=== PATIENT | male | born 1980 | race Caucasian/White ===

== ENCOUNTER 2017-11-19 15:26 | Emergency (ER) | payer MEDICAID ==
[~2017-11-19] VITALS: Ht 172.7 cm; Wt 104.0 kg
[~2017-11-19 15:26] MED LIST: CLIN-80 PO; NO HOME MEDS; PANT20TA3 PO; SUCR1ORA2 PO
[2017-11-19 16:00] LABS: BASOPHILS % (AUTO) 0.5 % (0-1); EOSINOPHILS # (AUTO) 0.2 X10'3 (0-0.9); EOSINOPHILS % (AUTO) 4.3 % (0-6); HEMATOCRIT 44.8 % (42.0-52.0); HEMOGLOBIN 15.7 g/dl (14.0-17.9); LYMPHOCYTES # (AUTO) 1.6 X10'3 (1.1-4.8); LYMPHOCYTES % (AUTO) 29.1 % (21-51); MEAN CORPUSCULAR HEMOGLOBIN 32.2 PG (27.0-31.0); MEAN CORPUSCULAR HGB CONC 34.9 % (33.0-36.5); MEAN CORPUSCULAR VOLUME 92.3 FL (78-98); MEAN PLATELET VOLUME 7.7 FL (7.4-10.4); MONOCYTES # (AUTO) 0.5 X10'3 (0-0.9); MONOCYTES % (AUTO) 8.7 % (2-12); NEUTROPHILS # (AUTO) 3.2 X10'3 (1.8-7.7); NEUTROPHILS % (AUTO) 57.4 % (42-75); PLATELET COUNT 219 X10'3 (140-440); RED BLOOD COUNT 4.86 X10'6 (4.70-6.10); RED CELL DISTRIBUTION WIDTH 13.1 % (11.5-14.5); WHITE BLOOD COUNT 5.7 X10'3 (4.5-11.0)
[2017-11-19 16:11] LABS: CLARITY,URINE SLIGHTLY CLOUDY (Clear); COLOR,URINE YELLOW (Yellow); GLUCOSE, URINE NEGATIVE (Neg); KETONES,URINE NEGATIVE (Neg); LEUKOCYTE ESTERASE ,URINE NEGATIVE (Neg); NITRITES, URINE NEGATIVE (Neg); OCCULT BLOOD,URINE NEGATIVE (Neg); PH,URINE 8.5 (4.8-8.0); PROTEIN,URINE NEGATIVE (Neg); UROBILINOGEN,URINE 0.2 E.U/dL (0.2-1.0)
[2017-11-19 16:14] LABS: ALANINE AMINOTRANSFERASE 40 U/L (12-78); ALBUMIN 3.6 G/DL (3.4-5.0); ALBUMIN/GLOBULIN RATIO 0.9 (1.1-1.5); ALKALINE PHOSPHATASE 63 IU/L (46-116); ANION GAP 6 (8-16); ASPARTATE AMINO TRANSFERASE 28 U/L (10-37); BILIRUBIN,TOTAL 0.3 MG/DL (0.1-1.0); BLOOD UREA NITROGEN 14 MG/DL (7-18); BUN/CREATININE RATIO 16.7 (5.4-32.0); CALCIUM 8.8 MG/DL (8.5-10.1); CHLORIDE 105 MMOL/L (99-107); CREATININE 0.84 MG/DL (0.60-1.10); GLUCOSE 92 MG/DL (70-104); POTASSIUM 4.4 MMOL/L (3.5-5.1); PROTHROMBIN TIME 10.3 SECONDS (9.0-12.0); SODIUM 142 MMOL/L (135-145); TOTAL CARBON DIOXIDE 31.1 MMOL/L (24-32); TOTAL PROTEIN 7.4 G/DL (6.4-8.2); eGFR > 90 ML/MIN
[2017-11-19 16:16] LABS: UA COLLECTION TYPE CLN CATCH MIDSTREAM
[2017-11-19 16:17] LABS: BACTERIA,URINE NONE SEEN /HPF (Neg); RBC,URINE NONE SEEN /HPF (0-2); SQUAMOUS EPITHELIAL CELL,UR FEW /LPF (FEW); WBC,URINE NONE SEEN /HPF (0-4)
[2017-11-19 16:18] LABS: AMORPHOUS PHOSPHATES 3+
[2017-11-19] MEDS ORDERED: MORPHINE 2MG in 2ml NS syringe IV PRN (16:55)
[2017-11-19] MEDS ORDERED: ondansetron/PF 4mg/2ml inj IV ONE (16:55)
[2017-11-19] MEDS ORDERED: normal saline 1000ML IV soln IVB ONE (16:55)
[2017-11-19 17:01] LABS: LIPASE 146 U/L (73-393)
[2017-11-19 18:13] VITALS: BP 114/72
== END 2017-11-19 19:22 | disposition home or self-care (01) ==
LOC: ER 15:28
DX: K57.30 Diverticulosis of large intestine without perforation or abscess without bleeding (principal); R10.84 Generalized abdominal pain; Z87.11 Personal history of peptic ulcer disease; Z79.899 Other long term (current) drug therapy; Z87.19 Personal history of other diseases of the digestive system
CPT/HCPCS: 36415; 74176; 80053; 81001; 83690; 85025; 85610; 96374; 96375; 99285; J2274; J2405; J7030

== ENCOUNTER 2018-03-07 00:04 | Emergency (ER) | payer MEDICAID ==
[~2018-03-07] VITALS: Ht 182.9 cm; Wt 91.7 kg
[~2018-03-07 00:04] MED LIST changes: -CLIN-80 PO; +CLIN300C85 PO
[2018-03-07] MEDS ORDERED: ondansetron/PF 4mg/2ml inj IM ONE (03:35)
[2018-03-07] MEDS ORDERED: morphine 4 MG/ML inj SYRINge IM ONE (03:35)
[2018-03-07] MEDS ORDERED: ketorolac trometh inj. 60 MG/2 ML VIAL IM ONE (03:35)
[2018-03-07 04:11] VITALS: BP 120/65
[2018-03-07] MEDS ORDERED: IBUP-1986 PO (04:21)
[2018-03-07] MEDS ORDERED: HYDR-569 PO (04:21)
== END 2018-03-07 04:36 | disposition home or self-care (01) ==
LOC: ER 00:05
DX: S30.0XXA Contusion of lower back and pelvis, initial encounter (principal); M19.90 Unspecified osteoarthritis, unspecified site; K57.92 Diverticulitis of intestine, part unspecified, without perforation or abscess without bleeding; K27.9 Peptic ulcer, site unspecified, unspecified as acute or chronic, without hemorrhage or perforation; K46.9 Unspecified abdominal hernia without obstruction or gangrene; W11.XXXA Fall on and from ladder, initial encounter; Y93.89 Activity, other specified; Y92.89 Other specified places as the place of occurrence of the external cause; Y99.8 Other external cause status
CPT/HCPCS: 72074; 72110; 72170; 96372; 99284; J1885; J2270; J2405

== ENCOUNTER 2018-04-04 09:15 | Emergency (ER) | payer MEDICAID ==
[~2018-04-04] VITALS: Ht 177.8 cm; Wt 102.5 kg
[~2018-04-04 09:15] MED LIST changes: +HYDR-569 PO; +IBUP-1986 PO
[2018-04-04] MEDS ORDERED: diazepam 5mg tablet PO ONE (09:50)
[2018-04-04] MEDS ORDERED: HYDROcodone/acetaminophen 10/325mg tab PO ONE (09:50)
[2018-04-04] MEDS ORDERED: ondansetron 4mg rapidly disintigrating tab PO ONE (09:50)
[2018-04-04] MEDS ORDERED: METH500T PO (10:07)
[2018-04-04] MEDS ORDERED: HYDR-3965 PO (10:07)
[2018-04-04] MEDS ORDERED: VAL5T PO (10:07)
[2018-04-04] MEDS ORDERED: ONDA4TAB9 SL (10:07)
[2018-04-04 10:23] VITALS: BP 125/76
== END 2018-04-04 10:24 | disposition home or self-care (01) ==
LOC: ER 09:15
DX: S46.912A Strain of unspecified muscle, fascia and tendon at shoulder and upper arm level, left arm, initial encounter (principal); Z79.2 Long term (current) use of antibiotics; Z79.899 Other long term (current) drug therapy; X58.XXXA Exposure to other specified factors, initial encounter; Y93.89 Activity, other specified; Y92.89 Other specified places as the place of occurrence of the external cause; Y99.8 Other external cause status
CPT/HCPCS: 99284

== ENCOUNTER 2019-01-13 21:38 | Emergency (ER) | payer BC, MEDICAID ==
[~2019-01-13] VITALS: Ht 177.8 cm; Wt 102.7 kg
[~2019-01-13 21:38] MED LIST changes: +CLIN-96 PO; -CLIN300C85 PO; +HYDR-4383 PO; -HYDR-569 PO; +METH500T PO
[2019-01-13 23:40] VITALS: BP 111/58
--- NOTE | 2019-01-13 23:48 | NUR ---
pt polite and cooperative. at bedside. reports pain is 8 out of 10 to lower back and radiates down his left leg at times. pt taking tylenol with no relif. Awaiting er provider. VSS.
[2019-01-14] MEDS ORDERED: CYCL-1 PO (00:38)
[2019-01-14] MEDS ORDERED: ketorolac tromethamine 15mg/ml inj. IM ONE (00:40)
[2019-01-14] MEDS ORDERED: orphenadrine citrate 60mg/2ml inj. IM ONE (00:40)
--- NOTE | 2019-01-14 00:42 | NUR ---
pt informed that there is order for pain meds,will administred as its verified by pharmacy,pt verbaized understanding.denies any concern.significant other at bedside.
== END 2019-01-14 01:01 | disposition home or self-care (01) ==
LOC: ER 21:39
DX: M54.5 Low back pain (principal); G89.29 Other chronic pain; R20.0 Anesthesia of skin; Z79.899 Other long term (current) drug therapy
CPT/HCPCS: 96372; 99283; J1885; J2360

== ENCOUNTER 2019-05-24 15:45 | Emergency (ER) | payer BC ==
[~2019-05-24] VITALS: Ht 177.8 cm; Wt 96.0 kg
[~2019-05-24 15:45] MED LIST changes: +CLIN-90 PO; -CLIN-96 PO; +CYCL-1 PO
[2019-05-24 16:02] VITALS: BP 113/73
[2019-05-24] MEDS ORDERED: acetaminophen 325mg tablet PO ONE (16:15)
== END 2019-05-24 16:45 | disposition home or self-care (01) ==
LOC: ER 15:50
DX: S40.022A Contusion of left upper arm, initial encounter (principal); Z79.899 Other long term (current) drug therapy; Z79.1 Long term (current) use of non-steroidal anti-inflammatories (NSAID); Z79.2 Long term (current) use of antibiotics; Z87.19 Personal history of other diseases of the digestive system; Z87.11 Personal history of peptic ulcer disease; W20.8XXA Other cause of strike by thrown, projected or falling object, initial encounter; Y93.89 Activity, other specified; Y92.89 Other specified places as the place of occurrence of the external cause; Y99.0 Civilian activity done for income or pay
CPT/HCPCS: 73030; 73060; 99283

== ENCOUNTER 2019-08-03 20:44 | Emergency (ER) | payer BC ==
[~2019-08-03] VITALS: Ht 177.8 cm; Wt 100.0 kg
[2019-08-03 21:29] LABS: ALANINE AMINOTRANSFERASE 34 U/L (12-78); ALBUMIN 3.8 G/DL (3.4-5.0); ALBUMIN/GLOBULIN RATIO 1.1 (1.1-1.5); ALKALINE PHOSPHATASE 63 IU/L (46-116); ANION GAP 5 (8-16); ASPARTATE AMINO TRANSFERASE 27 U/L (10-37); BILIRUBIN,TOTAL 0.3 MG/DL (0.1-1.0); BLOOD UREA NITROGEN 18 MG/DL (7-18); CALCIUM 8.6 MG/DL (8.5-10.1); CHLORIDE 107 MMOL/L (99-107); CREATININE 0.82 MG/DL (0.60-1.10); GLUCOSE 94 MG/DL (70-104); POTASSIUM 4.2 MMOL/L (3.5-5.1); SODIUM 145 MMOL/L (135-145); TOTAL CARBON DIOXIDE 32.9 MMOL/L (24-32); TOTAL PROTEIN 7.3 G/DL (6.4-8.2); eGFR > 90 ML/MIN
[2019-08-03 22:00] LABS: BASOPHILS # (AUTO) 0.1 X10'3 (0-0.2); BASOPHILS % (AUTO) 0.9 % (0-1); EOSINOPHILS # (AUTO) 0.3 X10'3 (0-0.9); EOSINOPHILS % (AUTO) 4.2 % (0-6); HEMATOCRIT 42.8 % (42.0-52.0); HEMOGLOBIN 14.8 g/dl (14.0-17.9); LYMPHOCYTES # (AUTO) 1.6 X10'3 (1.1-4.8); LYMPHOCYTES % (AUTO) 25.9 % (21-51); MEAN CORPUSCULAR HEMOGLOBIN 31.7 PG (27.0-31.0); MEAN CORPUSCULAR HGB CONC 34.5 g/dL (33.0-36.5); MEAN CORPUSCULAR VOLUME 91.7 FL (78-98); MONOCYTES # (AUTO) 0.6 X10'3 (0-0.9); MONOCYTES % (AUTO) 8.8 % (2-12); NEUTROPHILS # (AUTO) 3.8 X10'3 (1.8-7.7); NEUTROPHILS % (AUTO) 60.2 % (42-75); PLATELET COUNT 201 X10'3 (140-440); RED BLOOD COUNT 4.66 X10'6 (4.70-6.10); RED CELL DISTRIBUTION WIDTH 13.1 % (11.5-14.5); WHITE BLOOD COUNT 6.3 X10'3 (4.5-11.0)
[2019-08-03] MEDS ORDERED: aspirin 81mg tab.chew PO ONE (22:25)
[2019-08-03] MEDS ORDERED: pantoprazole 40 MG vial IV ONE (22:25)
[2019-08-03] MEDS ORDERED: pantoprazole 40mg Tablet.DR PO ONE (22:45)
[2019-08-04 01:11] VITALS: BP 106/43
--- NOTE | 2019-08-04 01:17 | NUR ---
PT DENIES CHEST PAIN AT THIS TIME. DENIES NUMBNESS TINGLING OR DIZZINESS. PT GIVEN DC INSTRUCTIONS. INSTRUCTED TO COME BACK IF HE HAS WORSENING CHEST PAIN. PT TO CALL DOCTOR TOMORROW TO F/U. AT BEDSIDE. PT GIVEN 1 DAY WORK EXCUSE NOTE.
== END 2019-08-04 01:19 | disposition home or self-care (01) ==
LOC: ER 20:44
DX: R00.2 Palpitations (principal); R07.89 Other chest pain; R42 Dizziness and giddiness; R10.13 Epigastric pain; R51 Headache; F12.90 Cannabis use, unspecified, uncomplicated; Z87.19 Personal history of other diseases of the digestive system; Z87.11 Personal history of peptic ulcer disease; Z87.891 Personal history of nicotine dependence; Z79.899 Other long term (current) drug therapy; Z79.2 Long term (current) use of antibiotics; Z79.1 Long term (current) use of non-steroidal anti-inflammatories (NSAID)
CPT/HCPCS: 36415; 71045; 80053; 84484; 85025; 93005; 99284

== ENCOUNTER 2020-11-07 16:32 | Emergency (ER) | payer BC ==
[~2020-11-07] VITALS: Ht 177.8 cm; Wt 95.5 kg
[~2020-11-07 16:32] MED LIST changes: -CLIN-90 PO; +CLIN-97 PO; +PANT20TA18 PO; -PANT20TA3 PO
[2020-11-07 17:08] VITALS: BP 99/61
== END 2020-11-07 18:55 | disposition left against medical advice (07) ==
LOC: ER 16:32
DX: M54.5 Low back pain (principal); Z53.21 Procedure and treatment not carried out due to patient leaving prior to being seen by health care provider

== ENCOUNTER 2021-04-12 05:51 | Emergency (ER) | payer BC ==
[~2021-04-12] VITALS: Ht 177.8 cm; Wt 100.0 kg
[2021-04-12] MEDS ORDERED: ondansetron/PF 4mg/2ml inj IV ONE (06:10)
[2021-04-12] MEDS ORDERED: normal saline 1000ml 1,000 ML IV ONE (06:10)
[2021-04-12] MEDS ORDERED: morphine 4 MG/ML inj SYRINge IV ONE ×2 (06:10→08:10)
[2021-04-12 06:32] LABS: BASOPHILS % (AUTO) 0.4 % (0-1); EOSINOPHILS # (AUTO) 0.3 X10'3 (0-0.9); EOSINOPHILS % (AUTO) 2.3 % (0-6); HEMATOCRIT 46.6 % (42.0-52.0); LYMPHOCYTES # (AUTO) 1.2 X10'3 (1.1-4.8); MEAN CORPUSCULAR HEMOGLOBIN 31.8 PG (27.0-31.0); MEAN CORPUSCULAR HGB CONC 34.3 g/dL (33.0-36.5); MEAN CORPUSCULAR VOLUME 92.8 FL (78-98); MONOCYTES # (AUTO) 0.6 X10'3 (0-0.9); MONOCYTES % (AUTO) 5.7 % (2-12); NEUTROPHILS % (AUTO) 80.6 % (42-75); PLATELET COUNT 214 X10'3 (140-440); RED BLOOD COUNT 5.02 X10'6 (4.70-6.10); WHITE BLOOD COUNT 11.1 X10'3 (4.5-11.0)
[2021-04-12 06:50] LABS: ALANINE AMINOTRANSFERASE 37 U/L (12-78); ALBUMIN 3.7 G/DL (3.4-5.0); ALKALINE PHOSPHATASE 70 IU/L (46-116); ANION GAP 9 (8-16); ASPARTATE AMINO TRANSFERASE 24 U/L (10-37); BILIRUBIN,DIRECT 0.1 MG/DL (0-0.3); BILIRUBIN,TOTAL 0.4 MG/DL (0.1-1.0); BLOOD UREA NITROGEN 17 MG/DL (7-18); BUN/CREATININE RATIO 21.8 (5.4-32.0); CALCIUM 8.8 MG/DL (8.5-10.1); CHLORIDE 107 MMOL/L (99-107); CREATININE 0.78 MG/DL (0.60-1.10); GLUCOSE 148 MG/DL (70-104); LIPASE 366 U/L (73-393); POTASSIUM 4.6 MMOL/L (3.5-5.1); SODIUM 143 MMOL/L (135-145); TOTAL CARBON DIOXIDE 27.5 MMOL/L (24-32); TOTAL PROTEIN 7.5 G/DL (6.4-8.2); eGFR > 90 ML/MIN
[2021-04-12] MEDS ORDERED: iohexol 300mg/ml 100ml inj. ONE (07:04)
--- NOTE | 2021-04-12 07:15 | NUR ---
Pt to CT
[2021-04-12] MEDS ORDERED: amox tr/potassium clavulanate 875/125mg TAB PO ONE (08:55)
[2021-04-12] MEDS ORDERED: AMOX-422 PO (09:32)
[2021-04-12] MEDS ORDERED: HYDR-3965 PO (09:50)
[2021-04-12 10:10] VITALS: BP 120/70
== END 2021-04-12 10:11 | disposition home or self-care (01) ==
LOC: ER 05:51
DX: K57.92 Diverticulitis of intestine, part unspecified, without perforation or abscess without bleeding (principal); R10.32 Left lower quadrant pain; F12.90 Cannabis use, unspecified, uncomplicated; Z87.11 Personal history of peptic ulcer disease; Z79.2 Long term (current) use of antibiotics; Z79.899 Other long term (current) drug therapy
CPT/HCPCS: 36415; 74177; 80048; 80076; 83690; 85025; 96361; 96374; 96375; 96376; 99285; J2270; J2405; J7030; Q9967

== ENCOUNTER 2021-04-12 18:26 | Inpatient (IN) | payer BC ==
[~2021-04-12] VITALS: Ht 177.8 cm; Wt 205.0 kg
[~2021-04-12 18:26] MED LIST changes: +AMOX-422 PO; +HYDR-3965 PO
[2021-04-12] MEDS ORDERED: ondansetron 4mg rapidly disintigrating tab PO ONE (19:20)
[2021-04-12] MEDS ORDERED: morphine 4 MG/ML inj SYRINge IM ONE (19:20)
[2021-04-12] MEDS ORDERED: morphine 2 MG/ML inj. syringe IV ONE (22:15)
[2021-04-12] MEDS ORDERED: ondansetron/PF 4mg/2ml inj IV ONE (22:15)
[2021-04-12] MEDS ORDERED: piperacillin/tazo 3.375gm/50ml 50 ML IV ONE (22:20)
[2021-04-13] MEDS ORDERED: acetaminophen 325mg tablet PO PRN ×2 (00:05→09:15)
[2021-04-13] MEDS ORDERED: ondansetron/PF 4mg/2ml inj IV PRN (00:05)
[2021-04-13] MEDS: normal saline 1000ml 1,000 ML IV SCH ×4 (00:10→21:55)
[2021-04-13] MEDS: morphine 2 MG/ML inj. syringe IV PRN ×4 (00:32→08:34)
[2021-04-13 01:08] VITALS: BP 114/70
--- NOTE | 2021-04-13 07:09 | NUR ---
Patient in room [facility]. I have received report from Jessa MILIAN Travel Nurse and had the opportunity to ask questions and assume patient care.
--- NOTE | 2021-04-13 07:43 | NUR ---
PAGER ID: [phone] MESSAGE: [id number] Josue Bangura. Are you aware of the CT findings of a miniscule Mesenteric Perforation. Dr. Bran is in house [facility]. Radha [id number]
[2021-04-13 08:00] VITALS: BP 108/63
[2021-04-13] MEDS ORDERED: normal saline 500ml IV soln 500 ML IV PRN (08:10)
[2021-04-13] MEDS: piperacillin/tazo 3.375gm/50ml 50 ML IV SCH ×2 (08:24→16:09)
[2021-04-13] MEDS ORDERED: magnesium 4gm in 100ml NS 100 ML IV PRN (09:15)
[2021-04-13] MEDS ORDERED: potassium Cl 40MEQ/1/2NS 520ml 520 ML IV PRN ×2 (09:15)
[2021-04-13] MEDS ORDERED: magnesium 2GM in 50ml NS 50 ML IV PRN (09:15)
[2021-04-13] MEDS ORDERED: HYDROcodone/acetaminophen 10/325mg tab PO PRN (09:15)
[2021-04-13] MEDS ORDERED: magnesium Cl slow-release 64mg tablet PO PRN (09:15)
[2021-04-13] MEDS ORDERED: potassium Cl 20 mEq SR tablet PO PRN ×2 (09:15)
[2021-04-13 11:00] VITALS: BP_SYST 115; BP_SYST 122; BP_DIAS 70; BP_DIAS 71
[2021-04-13] MEDS ORDERED: HYDROmorphone inj. 0.5 MG/0.5 ML DISP.SYRIN IV PRN (12:15)
[2021-04-13] MEDS: HYDROmorphone 1 mg/ml syringe IV PRN ×3 (12:46→23:00)
[2021-04-13] MEDS ORDERED: LORazepam 1 MG tablet PO PRN (13:05)
--- NOTE | 2021-04-13 15:18 | NUR ---
Student documentation: I have reviewed all interventions, assessments performed and documented by Lex PALACIOS from [facility]. Student Medication Administration: For all medication-pass' in the time frame of 6989-8393, all medication were reviewed, dispensed, administered and documented per hospital policy by Lex PALACIOS from [facility]..
--- NOTE | 2021-04-13 16:56 | NUR ---
Patient refused Labs, didn't want another needle stuck in him. IV pump going off and patient irritated that he has to keep his arm straight, states "can't you put the IV in another place." Patient is short with staff and acts irritated. Order was gotten from MD to change Patient IV pain medications from MS to Dilaudid. Patient wanting to know when his IV antibiotic is going to be hung, explained that the medications are all scheduled and have times to be hung. Will continue to follow and monitor patients and his irritability.
--- NOTE | 2021-04-13 19:12 | NUR ---
While reviewing patient chart and noted clear liquid diet and NPO. Spoke to patient at beside during assessment regarding diet order and reveals ": I am not going to have emergency surgery and I preferred to walk out of the hospital." Patient medicated x 1 with dilaudid for pain #8/10 and result pending. Encouraged to verbalize his concern to MD in AM.
[2021-04-13] MEDS: lactobacillus rhamnosus 10,000 MMU CELLS/CAPSULE PO SCH (19:50)
[2021-04-13] MEDS: K and/or MAG REPLACEMENT MC SCH (19:51)
[2021-04-13 20:00] VITALS: BP 116/64
[2021-04-14] VITALS: BP 98/52
[2021-04-14] MEDS: piperacillin/tazo 3.375gm/50ml 50 ML IV SCH ×2 (00:30→07:54)
[2021-04-14] MEDS: HYDROmorphone 1 mg/ml syringe IV PRN (04:47)
[2021-04-14] MEDS: normal saline 1000ml 1,000 ML IV SCH (04:56)
--- NOTE | 2021-04-14 06:39 | NUR ---
Patient in room [facility]. I have received report from YANG MILIAN and had the opportunity to ask questions and assume patient care.
[2021-04-14] MEDS: K and/or MAG REPLACEMENT MC SCH (07:53)
[2021-04-14] MEDS: lactobacillus rhamnosus 10,000 MMU CELLS/CAPSULE PO SCH (07:53)
[2021-04-14 08:00] VITALS: BP 119/66
--- NOTE | 2021-04-14 10:00 | NUR ---
Student documentation: I have reviewed and agree with all interventions, assessments performed and documented by CHRISTAL GÓMEZ
--- NOTE | 2021-04-14 10:14 | NUR ---
PAGER ID: [phone] MESSAGE: MARY SURG [id number] RE: [id number] PATIENT IS LEAVING AMA AND NEEDS SOME DOCUMENTS FOR PRIMARY BECAUSE HE WANTS A SECOND OPINION. THANKS MARY. HE IS LEAVING AT 1130. Addendum: 04/14/21 at 1048 by Elmer Barros RN IS AWARE THAT PATIENT IS WANTING TO LEAVE [place] AT THIS TIME.
[2021-04-14 11:36] VITALS: BP 120/69
== END 2021-04-14 11:16 | disposition left against medical advice (07) | DRG 392 ==
LOC: ER 18:26 → SUR 3N 04-13 00:04
PROVIDERS: ADMIT Internal Medicine; ATTEND Family Medicine
DX: K57.20 Diverticulitis of large intestine with perforation and abscess without bleeding (principal); E78.1 Pure hyperglyceridemia; E78.5 Hyperlipidemia, unspecified; F41.9 Anxiety disorder, unspecified; F12.90 Cannabis use, unspecified, uncomplicated; Z53.29 Procedure and treatment not carried out because of patient's decision for other reasons; Z80.0 Family history of malignant neoplasm of digestive organs; Z87.11 Personal history of peptic ulcer disease; Z79.899 Other long term (current) drug therapy
CPT/HCPCS: 74176; 87081; 96365; 96372; 96375; 99285; G0378; J1170; J2270; J2405; J2543; J7030; J7040

== ENCOUNTER 2022-01-20 08:38 | Emergency (ER) | payer BC, MEDICAID ==
[~2022-01-20] VITALS: Ht 177.8 cm; Wt 95.5 kg
[2022-01-20 08:46] VITALS: BP 111/69
== END 2022-01-20 11:42 | disposition left against medical advice (07) ==
LOC: ER 08:38
DX: K04.7 Periapical abscess without sinus (principal); Z53.21 Procedure and treatment not carried out due to patient leaving prior to being seen by health care provider

== ENCOUNTER → 2022-02-05 | Emergency (ER) | payer BC, MEDICAID ==
[~2022-02-05] VITALS: Ht 177.8 cm; Wt 95.5 kg
[~2022-02-05] MED LIST changes: -AMOX-422 PO; -CLIN-97 PO; -CYCL-1 PO; -HYDR-4383 PO; -IBUP-1986 PO; +LIDOcaine 1% w/EPI 1:100,000 30ml vial (MDV) IJ ONE; -METH500T PO; -NO HOME MEDS; -PANT20TA18 PO; -SUCR1ORA2 PO; +acetaminophen 325mg tablet PO ONE; +epiNEPHrine inj 0.3 MG in LIDOcaine 1% 30ml vial 29.7 ML IJ ONE; +ketorolac trometh inj. 60 MG/2 ML VIAL IM ONE; +triamcinolone acetonide 40mg/ml inj IM ONE
[2022-02-05 08:44] VITALS: BP 117/69
== END | disposition home or self-care (01) ==
LOC: ER 08:42
DX: M25.511 Pain in right shoulder (principal); M25.522 Pain in left elbow; F12.10 Cannabis abuse, uncomplicated; Z87.19 Personal history of other diseases of the digestive system; Z79.899 Other long term (current) drug therapy; W19.XXXA Unspecified fall, initial encounter; Y93.89 Activity, other specified; Y92.89 Other specified places as the place of occurrence of the external cause; Y99.8 Other external cause status
CPT/HCPCS: 20552; 73030; 96372; 99284; J1885

== ENCOUNTER 2022-05-28 17:48 | Emergency (ER) | payer MEDICAID ==
[~2022-05-28] VITALS: Ht 177.8 cm; Wt 97.7 kg
[2022-05-28 18:33] VITALS: BP 119/78
[2022-05-28 19:02] LABS: BASOPHILS # (AUTO) 0.1 X10'3 (0-0.2); EOSINOPHILS # (AUTO) 0.5 X10'3 (0-0.9); EOSINOPHILS % (AUTO) 6.4 % (0-6); HEMATOCRIT 45.2 % (42.0-52.0); HEMOGLOBIN 15.6 g/dl (14.0-17.9); LYMPHOCYTES # (AUTO) 2.4 X10'3 (1.1-4.8); LYMPHOCYTES % (AUTO) 29.9 % (21-51); MEAN CORPUSCULAR HEMOGLOBIN 32.6 PG (27.0-31.0); MEAN CORPUSCULAR HGB CONC 34.5 g/dL (33.0-36.5); MEAN CORPUSCULAR VOLUME 94.3 FL (78-98); MEAN PLATELET VOLUME 7.9 FL (7.4-10.4); MONOCYTES # (AUTO) 0.5 X10'3 (0-0.9); MONOCYTES % (AUTO) 6.6 % (2-12); NEUTROPHILS # (AUTO) 4.4 X10'3 (1.8-7.7); NEUTROPHILS % (AUTO) 56.1 % (42-75); PLATELET COUNT 208 X10'3 (140-440); RED BLOOD COUNT 4.79 X10'6 (4.70-6.10); RED CELL DISTRIBUTION WIDTH 12.8 % (11.5-14.5); WHITE BLOOD COUNT 7.9 X10'3 (4.5-11.0)
[2022-05-28 19:10] LABS: CLARITY,URINE CLEAR (Clear); COLOR,URINE YELLOW (Yellow); GLUCOSE, URINE NEGATIVE (Neg); KETONES,URINE NEGATIVE (Neg); LEUKOCYTE ESTERASE ,URINE NEGATIVE (Neg); NITRITES, URINE NEGATIVE (Neg); OCCULT BLOOD,URINE NEGATIVE (Neg); PROTEIN,URINE NEGATIVE (Neg); UROBILINOGEN,URINE 0.2 E.U/dL (0.2-1.0)
[2022-05-28 19:27] LABS: UA COLLECTION TYPE CLN CATCH MIDSTREAM
[2022-05-28 19:28] LABS: ALANINE AMINOTRANSFERASE 30 U/L (12-78); ALBUMIN 3.6 G/DL (3.4-5.0); ALBUMIN/GLOBULIN RATIO 0.9 (1.1-1.5); ALKALINE PHOSPHATASE 59 IU/L (46-116); ANION GAP 10 (8-16); ASPARTATE AMINO TRANSFERASE 24 U/L (10-37); BILIRUBIN,TOTAL 0.2 MG/DL (0.1-1.0); BLOOD UREA NITROGEN 13 MG/DL (7-18); BUN/CREATININE RATIO 16.9 (5.4-32.0); CALCIUM 8.7 MG/DL (8.5-10.1); CHLORIDE 107 MMOL/L (99-107); CREATININE 0.77 MG/DL (0.60-1.10); GLUCOSE 125 MG/DL (70-104); LIPASE 133 U/L (73-393); POTASSIUM 4.1 MMOL/L (3.5-5.1); SODIUM 143 MMOL/L (135-145); TOTAL CARBON DIOXIDE 25.6 MMOL/L (24-32); TOTAL PROTEIN 7.5 G/DL (6.4-8.2); eGFR > 90 ML/MIN
[2022-05-28] MEDS ORDERED: ondansetron/PF 4mg/2ml inj IV ONE (20:25)
[2022-05-28] MEDS ORDERED: morphine 4 MG/ML inj SYRINge IV PRN (20:25)
[2022-05-28] MEDS ORDERED: normal saline 1000ML IV soln IVB ONE (20:25)
== END 2022-05-28 20:31 | disposition left against medical advice (07) ==
LOC: ER 17:49
DX: R10.11 Right upper quadrant pain (principal); F12.90 Cannabis use, unspecified, uncomplicated; Z87.891 Personal history of nicotine dependence
CPT/HCPCS: 36415; 74176; 80053; 81003; 83690; 85025; 99284